=== PATIENT | female | born 1995 | race Caucasian/White ===

== ENCOUNTER → 2019-03-23 19:20 | Observation (INO) ==
[2019-03-23 17:30] LABS: Basophils % 0.3 %; Eosinophils # 0.1 K/mcL (0.0-0.6); Eosinophils % 1.3 %; Hematocrit 36.8 % (35.3-44.9); Hemoglobin 11.8 g/dL (11.5-15.4); Lymphocytes # 1.8 K/mcL (0.6-4.6); Lymphocytes % 18.5 %; Mean Corpuscular HGB Conc 32.1 g/dL (31.6-35.5); Mean Corpuscular Hemoglobin 30.6 pg (28.0-33.3); Mean Corpuscular Volume 95.6 fL (83.0-100.0); Mean Platelet Volume 10.7 fL (9.4-12.4); Monocytes # 0.7 K/mcL (0.0-1.3); Neutrophils # 6.7 K/mcL (1.6-8.9); Platelet Count 229 K/mcL (140-400); Red Blood Count 3.85 M/mcL (3.82-4.97); Red Cell Distribution Width 13.4 % (11.5-14.5); Segmented Neutrophils % 70.9 %; White Blood Count 9.4 K/mcL (4.3-11.1)
[2019-03-23 17:37] LABS: Alanine Aminotransferase 9 Units/L (7-52); Aspartate Amino Transferase 16 Units/L (13-39); BUN/Creatinine Ratio 12 (6-26); Blood Urea Nitrogen 5 mg/dL (6-20); Lactate Dehydrogenase 211 Units/L (140-271); Uric Acid 4.2 mg/dL (2.3-7.6); eGFR For African Americans > 60 (> 60); eGFR For Non-African Americans > 60 (> 60)
[2019-03-23 18:04] LABS: Creatinine,Urine 22 mg/dL
[~2019-03-23 19:20] MED LIST: FLU Vac QV 19-20 (6Month+)/PF 0.5 ML SYRINGE IM ONE; Ondansetron 4 MG/2 ML VIAL IVP ONE; Ringers Solution, Lactated 1,000 ML IVC ONE; Ringers Solution, Lactated 1,000 ML ONE
== END | disposition home or self-care (01) ==
LOC: 1NENULAB
PROVIDERS: ADMIT Advanced Practice Midwife; ATTEND Advanced Practice Midwife

== ENCOUNTER 2019-04-24 15:04 | Inpatient (IN) ==
[2019-04-24] MEDS ORDERED: Famotidine 20 MG/2 ML VIAL IVP PRN (15:44)
[2019-04-24] MEDS ORDERED: *HR* Nalbuphine 10 MG/ML AMPUL IVP PRN (15:44)
[2019-04-24] MEDS ORDERED: Naloxone 0.4 MG/ML INJ IVP PRN (15:44)
[2019-04-24] MEDS ORDERED: Metoclopramide 10 MG/2 ML VIAL IVP PRN (15:44)
[2019-04-24] MEDS ORDERED: Lidocaine 1% 20 ML MDV INFILT PRN (15:44)
[2019-04-24] MEDS ORDERED: Oxytocin 20 units/ LR 1000 mL 20 UNIT/1,000 ML BAG IVC SCH (16:15)
[2019-04-24 16:25] LABS: Amphetamine Screen,Urine Negative ng/mL (Cutoff=1000); Barbiturate Screen,Urine Negative ng/mL (Cutoff=200); Benzodiazepines Screen,Urine Negative ng/mL (Cutoff=200); Cannabinoid Screen,Urine Negative ng/mL (Cutoff = 50); Cocaine Screen,Urine Negative ng/mL (Cutoff= 300); Opiate Screen,Urine Negative ng/mL (Cutoff=300); Phencyclidine Screen,Urine Negative ng/mL (Cutoff=25)
[2019-04-24 16:30] LABS: Basophils % 0.3 %; Eosinophils # 0.2 K/mcL (0.0-0.6); Eosinophils % 1.6 %; Hematocrit 36.3 % (35.3-44.9); Hemoglobin 11.9 g/dL (11.5-15.4); Immature Granulocytes % 1.3 % (0-4); Lymphocytes # 2.4 K/mcL (0.6-4.6); Lymphocytes % 22.6 %; Mean Corpuscular HGB Conc 32.8 g/dL (31.6-35.5); Mean Corpuscular Hemoglobin 30.8 pg (28.0-33.3); Mean Platelet Volume 11.3 fL (9.4-12.4); Monocytes # 0.7 K/mcL (0.0-1.3); Monocytes % 6.3 %; Neutrophils # 7.2 K/mcL (1.6-8.9); Platelet Count 194 K/mcL (140-400); Red Blood Count 3.86 M/mcL (3.82-4.97); Red Cell Distribution Width 13.4 % (11.5-14.5); Segmented Neutrophils % 67.9 %; White Blood Count 10.6 K/mcL (4.3-11.1)
[2019-04-24] MEDS ORDERED: Oxytocin 20 units/ LR 1000 mL 20 UNIT/1,000 ML BAG IVC ONE (16:40)
[2019-04-24] MEDS: Ringers Solution, Lactated 1,000 ML IVC SCH (16:48)
[2019-04-24] MEDS: miSOPROStol 25 MCG TABLET VG SCH (22:03)
[2019-04-24] MEDS ORDERED: *HR* FentaNYL (PF) 100 MCG/2 ML VIAL EP ONE (22:06)
[2019-04-24] MEDS ORDERED: Bupivacaine-MPF 0.25% 10 ML VIAL EP ONE (22:06)
[2019-04-24] MEDS ORDERED: Bupivacaine-MPF 0.25% 10 ML VIAL ONE (22:08)
[2019-04-24] MEDS ORDERED: *HR* FentaNYL (PF) 100 MCG/2 ML VIAL ONE (22:08)
[2019-04-25] MEDS: miSOPROStol 25 MCG TABLET VG SCH ×2 (03:07→13:01)
[2019-04-25] MEDS: Ringers Solution, Lactated 1,000 ML IVC SCH ×2 (15:05→18:15)
[2019-04-25] MEDS ORDERED: Ropivacaine/PF 0.2% 20 ML VIAL ONE (15:26)
[2019-04-25] MEDS ORDERED: *HR* FentaNYL (PF) 100 MCG/2 ML VIAL ONE (15:26)
[2019-04-25] MEDS: Epidural Premix (fent/bupiv) 110 ML EP SCH ×2 (15:31→22:55)
[2019-04-25] MEDS: Ondansetron 4 MG/2 ML VIAL IVP PRN (18:15)
[2019-04-26] MEDS: Ondansetron 4 MG/2 ML VIAL IVP PRN ×2 (00:57→05:05)
[2019-04-26] MEDS ORDERED: Acetaminophen 325 MG TABLET PO ONE (05:38)
[2019-04-26] MEDS ORDERED: Lanolin 7 G OINT...G. TP PRN (06:51)
[2019-04-26] MEDS ORDERED: Benzocaine/Menthol 56 GM AEROSOL SPRAY TP PRN (06:51)
[2019-04-26] MEDS ORDERED: [UNRECOGNIZED DRUG - OTHER] PO PRN (06:51)
[2019-04-26] MEDS: miSOPROStol 25 MCG TABLET VG SCH ×2 (09:51→09:52)
[2019-04-26] MEDS: Ringers Solution, Lactated 1,000 ML IVC SCH (09:52)
[2019-04-26] MEDS: Prenatal Vit/FA 1 EACH TABLET PO SCH (09:55)
[2019-04-26] MEDS: Ibuprofen 600 MG TABLET PO SCH ×3 (09:58→16:10)
[2019-04-26] MEDS: Acetaminophen 325 MG TABLET PO SCH ×3 (09:58→18:25)
[2019-04-26] MEDS: Oxytocin 20 units/ LR 1000 mL 20 UNIT/1,000 ML BAG IVC SCH ×2 (11:37→16:11)
[2019-04-26] MEDS ORDERED: miSOPROStol 100 MCG TABLET PO ONE (13:14)
[2019-04-27] MEDS: Prenatal Vit/FA 1 EACH TABLET PO SCH (09:19)
[2019-04-27] MEDS: Ibuprofen 600 MG TABLET PO SCH (09:19)
[2019-04-27 10:08] VITALS: BP 135/88
== END 2019-04-27 13:15 | disposition home or self-care (01) | DRG 807 ==
LOC: 1NENULAB 15:04 → 1NENUOBS 04-26 08:13
PROVIDERS: ADMIT Advanced Practice Midwife; ATTEND Advanced Practice Midwife